=== PATIENT | male | born 1955 | race Caucasian/White ===

== ENCOUNTER 2024-09-03 14:52 | Emergency (ER) | payer MEDICARE, SELFPAY ==
[2024-09-03] VITALS (27 sets, daily range): BP systolic 119–179; BP diastolic 60–129; PULSE 68–103; RESP 13–34; TEMP 36.3; O2SAT 87–99
--- NOTE | 2024-09-03 14:45 | DI.RAD_ITS ---
Exam(s) XR HUMERUS RT EXAM: XR HUMERUS RT CLINICAL HISTORY: Trauma. TECHNIQUE: 2D digital imaging was performed of the right humerus. Four images were obtained. AP an d lateral views were obtained. COMPARISON: No exams were available for comparison FINDINGS: BONES: No acute fracture is present. No bony destructive lesion is seen. An anterior dislocation of t he right glenohumeral joint. SOFT TISSUE: Normal. IMPRESSION: Right anterior shoulder dislocation. DATA REPOSITORY: RADIATION DOSE DELIVERED:
--- NOTE | 2024-09-03 14:45 | DI.RAD_ITS ---
Exam(s) XR SHOULDER RT COMPLETE 2+V EXAM: XR SHOULDER RT COMPLETE 2+V CLINICAL HISTORY: fall, pain. TECHNIQUE: 2D digital imaging was performed of the right shoulder. Three images were obtained. Gra lashanda, AP and Y views were obtained. COMPARISON: No exams were available for comparison FINDINGS: BONES: No acute fracture is present. No bony destructive lesion is seen. JOINTS: There is an anterior dislocation of the right glenohumeral joint. Degenerative changes are s een at the acromioclavicular joint. SOFT TISSUE: Normal. IMPRESSION: Right anterior shoulder dislocation. DATA REPOSITORY: RADIATION DOSE DELIVERED:
--- NOTE | 2024-09-03 14:45 | DI.CT_ITS ---
Exam(s) CT HEAD CERVICAL SPINE WO EXAM: CT HEAD CERVICAL SPINE WO CLINICAL HISTORY: Fall on anticoagulation. TECHNIQUE: Imaging Protocol: Axial computed tomography images with coronal and sagittal reformatted images were created and reviewed COMPARISON: No exams were available for comparison FINDINGS: The examination is limited due to patient motion artifact. CT Head: Ventricles and Extra axial spaces: Normal in size and morphology for the patient's age. Hemorrhage: None. Cerebral parenchyma: No acute territorial infarct. No mass effect. Midline shift: None. Brainstem/Cerebellum: Normal. Calvarium: Normal. Visualized Paranasal sinuses/Mastoids: Clear. Soft Tissues: Unremarkable. CT Cervical Spine: Bones: No acute fracture or subluxation. Mild degenerative changes are seen in the spine. Soft Tissues: Unremarkable. Lung Apices: No evidence of an apical pneumothorax. IMPRESSION: 1. No acute intracranial process. 2. No acute fracture or subluxation in the cervical spine. RADIATION DOSE DELIVERED: 1,579.54mGy.cm Total DLP DATA REPOSITORY: All CT scans at this facility are submitted to the National Radiology Data Registry (NRDR) Dose Index Registry (DIR) with the [employer] ([employer]). RADIATION OPTIMIZATION: All CT scans at this facility use at least one of these dose optimization te chniques: automated exposure control; mA and/or kV adjustment per patient size (includes targeted exa ms where dose is matched to clinical indication); or iterative reconstruction.
--- NOTE | 2024-09-03 14:45 | RT.EKG_ITS ---
APPROVED REPORT Exam: Resting ECG Reason for Exam: A-fib, fall Patient Location: E HR:84 bpm ECG Measurements Heart Rate 84 AXIS HI 160 P 0 QRSd 158 QRS 9 QT 404 T 186 QTc 477 Conclusion A-fib, LBBB No STEMI
--- NOTE | 2024-09-03 14:55 | W.ED.GENAD ---
Discharge Plan Discharge Details Chief Complaint: Trauma Primary Care Provider: Mohan Aguilar ED Provider: Caty Lynn HPI General Mode of arrival: EMS. Date/Time Provider Initiated Documentation: 09/03/24 14:53. Limitations to Documentation: no limitations. Information obtained by: patient and old records reviewed. HPI Narrative: HPI: This is a 69-year-old male patient, with a past medical history significant for atrial fibrillation on anticoagulation, who is presenting for evaluation after a fall. The patient reports that he tripped over a lip on the floor, falling and landing on his right shoulder. He is not sure if he hit his head, states that he did not lose consciousness. He is complaining primarily of right shoulder and upper extremity pain. He was not able to get up after the event and summoned EMS. He states that prior to this event he was in his normal state of health, did not have any preceding dizziness, loss of consciousness/syncope, or chest pain. He has otherwise been in his normal state of health. Prior to arrival he received Tylenol intravenously for pain management. Exam: Gen: Awake and alert, in no apparent distress HEENT: Non-icteric sclera, PERRL, scalp with abrasions overlying the right forehead, right cheek. Scalp and face otherwise atraumatic Neck: Supple, no midline cervical spine tenderness, decreased range of motion or step-offs Lungs: No apparent respiratory distress, normal respiratory effort. Lung sounds clear and equal CV: Appears well perfused, strong distal pulses Abdomen: Non-distended, soft, nontender MSK: Moves 4 extremities without apparent limitation in ROM, with the exception of the right shoulder, which is tender to palpation over the area of the proximal humerus without significant deformity. There are no overlying skin changes, and distal to this injury to the elbow, forearm, and hand are without signs of significant trauma. She had L-spine without tenderness or step-offs, pelvis stable to AP compression, bilateral lower extremities without significant injuries. Skin: Visualized skin without rashes, cyanosis. The patient has an abrasion over his right elbow, right knee, hemostatic Neuro: No obvious focal deficits or facial asymmetry. Speaks in full, clear sentences. CSM's distal to the right upper extremity injury are intact and symmetrical bilaterally Psych: Appropriate for situation. MDM: This is a 69-year-old male patient presenting for evaluation after a fall. My differential includes but is not limited to intracranial hemorrhage, skull fracture, cervical spine fracture. Considered humerus fracture, shoulder fracture, dislocation, clavicle injury, AC separation. Considered contusion, ligamentous injury/sprain. I am reassured against neurovascular abnormalities given my reassuring and intact examination. The patient has no medical complaints prior to his fall to increase my concern for syncope, ACS, arrhythmia, severe metabolic or electrolyte derangements, or severe anemia. We will obtain basic laboratory studies to include CBC, CMP, PT/INR. I will obtain a CT of the patient's brain and C-spine, and x-ray imaging of the affected right shoulder and right humerus. ED Course: I independently interpreted the laboratory studies, which show no significant leukocytosis, a mild anemia, no thrombocytopenia. The chemistry panel is without evidence of electrolyte abnormality, kidney dysfunction, or liver injury. I provided the patient with a sling for comfort as well as Dilaudid for pain management. I signed out care of this patient to the oncoming provider prior to completion of imaging studies. All further care per the oncoming team. Caty Lynn MD Medical Decision Making Quality:[facility] Health Related Social Needs: No Data to Display [facility] Social History Smoking/Tobacco Use Status: Never Smoking risk assessment performed?: Yes Alcohol Intake: never Substance use type: does not use Sign Out Sign Out Data: Sign Out Comment: 69-year-old male patient, anticoagulated for atrial fibrillation, sustained a mechanical fall. Head strike, awaiting CT head and C-spine. Right shoulder and proximal humerus pain, pending x-rays. Hemodynamically appropriate, neuroexam otherwise intact, in a sling. Awaiting imaging. Last updated by Caty Lynn MD at 09/03/24 16:36
[2024-09-03 15:33] LABS: Abs Immature Grans 0.04 10^3/uL (0.0-0.06); Absolute Basophil Count 0.03 10^3/uL (0.0-0.2); Absolute Eosinophil Count 0.06 10^3/uL (0.0-0.7); Absolute Lymphocyte Count 0.87 10^3/uL (1.2-3.4); Absolute Neutrophil Count 7.97 10^3/uL (1.2-6.7); Basophils % 0.3 %; Eosinophils % 0.6 %; HCT 38.2 % (40.0-50.0); HGB 12.6 g/dL (13.5-17.5); Immature Grans % 0.4 %; MCH 34.4 pg (27.0-33.0); MCV 104 fL (80-95); MPV 9.6 fL (8.0-11.0); Monocytes % 7.2 %; Neutrophils % 82.5 %; Platelet Count 190 10^3/uL (130-400); RBC 3.66 10^6/uL (4.36-5.78); RDW 13.2 % (11.8-14.1); RDW-SD 51.3 fL; WBC 9.67 10^3/uL (4.4-10.8)
[2024-09-03 15:45] LABS: INR 1.2 (0.9-1.1)
[2024-09-03 16:10] LABS: ALT 37 U/L (16-63); AST 24 U/L (15-37); Albumin 3.5 g/dL (3.4-5.0); Alkaline Phosphatase 99 U/L (46-116); Anion Gap 7.4 mmol/L (3-11); BUN 21 mg/dL (7-18); Bilirubin, Total 0.67 mg/dL (0.2-1.0); CO2 26.6 mmol/L (21.0-32.0); Calcium 10.1 mg/dL (8.5-10.1); Chloride 107 mmol/L (98-107); Estimated GFR 82.49 (mL/min/1.73m2); Glucose 130 mg/dL (74-106); Potassium 4.8 mmol/L (3.5-5.1); Sodium 141 mmol/L (136-145)
--- OUTSIDE RECORDS SUMMARY | 2024-09-03 16:31 | XMS_ITS | Continuity of Care Document ---
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 - Active 90 day supply please LATANOPROST 0.005% EYE DROPS INSTILL 1 DROP INTO THE AFFECTED EYES IN THE EVENING - Active brinzolamide 1 % eye drops,suspension instill 1 drop by Ophthalmic route 2 times every day into both eyes 1 drop - Active 90 day supply please ROSUVASTATIN CALCIUM (unknown strength) Not Available - Active Aspirin Low Dose 81 mg tablet,delayed release - Active LISINOPRIL (unknown strength) Not Available - Active AMLODIPINE BESYLATE (unknown strength) Not Available - Active COREG (unknown strength) Not Available - Active timolol maleate 0.5 % eye drops INSTILL 1 DROP INTO BOTH EYES TWICE DAILY. - No Longer Active 90 day supply please Procedures Procedure Date COMPREHENSIVE EYE EXAM, EST. PATIENT March REFRACTION VISUAL FIELD EXAMINATION(S) Scanning Imaging, Posterior Segment, Opt ic Nerve VISUAL FIELD EXAMINATION(S) OFFICE/OUTPATIENT VISIT, EST VISUAL FIELD EXAMINATION(S) COMPREHENSIVE EYE EXAM, EST. PATIENT Sep VISUAL FIELD EXAMINATION(S) Scanning Imaging, Posterior Segment, Opt ic Nerve OFFICE/OUTPATIENT VISIT, EST VISUAL FIELD EXAMINATION(S) COMPREHENSIVE EYE EXAM, EST. PATIENT May VISUAL FIELD EXAMINATION(S) INTERMEDIATE EYE EXAM, ESTABLISHED PAT J an- VISUAL FIELD EXAMINATION(S) INTERMEDIATE EYE EXAM, ESTABLISHED PAT S POSTOP FOLLOW-UP VISIT LASER SURGERY OF EYE COMPREHENSIVE EYE EXAM, EST. PATIENT May VISUAL FIELD EXAMINATION(S) Scanning Imaging, Posterior Segment, Opt ic Nerve INTERMEDIATE EYE EXAM, ESTABLISHED PAT J an INTERMEDIATE EYE EXAM, ESTABLISHED PAT D ec- VISUAL FIELD EXAMINATION(S) INTERMEDIATE EYE EXAM, ESTABLISHED PAT O ct- INTERMEDIATE EYE EXAM, ESTABLISHED PAT O ct- POSTOP FOLLOW-UP VISIT LASER SURGERY OF EYE INTERMEDIATE EYE EXAM, ESTABLISHED PAT S ep- VISUAL FIELD EXAMINATION(S) SPECIAL EYE EVALUATION VISUAL FIELD EXAMINATION(S) COMPREHENSIVE EYE EXAM, EST. PATIENT May Scanning Imaging, Posterior Segment, Opt ic Nerve INTERMEDIATE EYE EXAM, ESTABLISHED PAT J INTERMEDIATE EYE EXAM, ESTABLISHED PAT J an-2017 VISUAL FIELD EXAMINATION(S) INTERMEDIATE EYE EXAM, ESTABLISHED PAT J an--2017 VISUAL FIELD EXAMINATION(S) INTERMEDIATE EYE EXAM, ESTABLISHED PAT J VISUAL FIELD EXAMINATION(S) COMPREHENSIVE EYE EXAM, EST. PATIENT Apr Scanning Imaging, Posterior Segment, Opt ic Nerve INTERMEDIATE EYE EXAM, ESTABLISHED AMI Au VISUAL FIELD EXAMINATION(S) INTERMEDIATE EYE EXAM, ESTABLISHED PAT S VISUAL FIELD EXAMINATION(S) EYE EXAM ESTABLISHED PAT VISUAL FIELD EXAMINATION(S) EYE EXAM ESTABLISHED PAT EYE EXAM & TREATMENT Scanning Imaging, Posterior Segment, Opt ic Nerve EYE EXAM ESTABLISHED PAT EYE EXAM ESTABLISHED PAT EYE EXAM ESTABLISHED [facility] EYE EXAM & TREATMENT REFRACTION N/C Scanning Imaging, Posterior Segment, Opt ic Nerve EYE EXAM ESTABLISHED PAT VISUAL FIELD EXAMINATION(S) EYE EXAM ESTABLISHED PAT EYE EXAM ESTABLISHED PAT Scanning Imaging, Posterior Segment, Opt ic Nerve OFFICE/OUTPATIENT VISIT, EST REFRACTION WITH EXAM EYE EXAM ESTABLISHED PAT OFFICE/OUTPATIENT VISIT, EST OFFICE/OUTPATIENT VISIT, EST VISUAL FIELD EXAMINATION(S) OFFICE/OUTPATIENT VISIT, EST Scanning Imaging, Posterior Segment, Opt ic Nerve EYE EXAM ESTABLISHED [facility] VISUAL FIELD EXAMINATION(S) EYE EXAM & TREATMENT REFRACTION WITH EXAM EYE EXAM & TREATMENT REFRACTION N/C EYE EXAM WITH PHOTOS Advance Directives Directive Yes / No Effective Date File Name No Information Encounters Encounter Description Practice Location Reason(s) For Visit Diagnoses Date Provider Providers Copied on Encounter [facility] , [address] [place] [address], [facility], tel:[phone] [place] No Information 4 Wilman Al [address] [place] [address], [address], [place]. tel:[phone] [facility] , [facility], [address], tel:[phone] [place] No Information 4 Wilman Al [address] [place] [address], [address], [facility], . tel:[phone] [facility] , [address] [place] [address], [facility], tel:[phone] [place] POAG (chief complaint) Primary open-angle glaucoma of right eye, severe stagePrimary open-angle glaucoma, left eye, mild stageAge-rela steffi nuclear cataract, bilateral May-0 4 Wilman Leong. [address] [place] [address], [facility], [place]. tel:[phone] [facility] , [address] [place] [address], [facility], tel:[phone] [place] No Information Apr-0 4 Wilman Leong. [address] [place] [address], [facility], . tel:[phone] [facility] , [address] [place] [address], [facility], tel:[phone] [facility] No Information Faizan-0 4 Wilman Leong. [address] [place] [address], [facility], [place]. tel:[phone] [facility] , [address] [place] [address], [facility], tel:[phone] [place] POAG (chief complaint) Primary open-angle glaucoma, left eye, mild stagePrimary open-angle glaucoma, right eye, moderate stage Dec-0 3 Wilman Al [address] [place] [address], [facility], [place]. tel:[phone] OFFICE/OUTPA TIENT VISIT, [facility] , [address] [place] [address], [facility], tel:[phone] [place] glaucoma (chief complaint) Primary open-angle glaucoma of right eye, severe stage Sep-0 6 3 Wilman Al [address] [place] [address], [facility], [place]. tel:[phone] [facility] , [address] [place] [address], [facility], tel:[phone] [place] POAG (chief complaint) Primary open-angle glaucoma of right eye, severe stage March- 3 Wilman [address] [facility], [address], [facility], . tel:[phone] [facility] , [address] [place] [address], [facility], tel:[phone] [place] glaucoma (chief complaint) Primary open-angle glaucoma, right eye, moderate stage Sep- 2 Wilman Al [address] [place] [address], [address], [facility], [place]. tel:[phone] OFFICE/OUTPA TIENT VISIT, [facility] , [address] [place] [address], [facility], tel:[phone] [place] POAG (chief complaint) Primary open-angle glaucoma of right eye, severe stage 2 Wilman Al [address] [place] [address], [address], [facility], [place]. tel:[phone] [facility] , [address] [place] [address], [facility], tel:[phone] [place] POAG (chief complaint) Primary open-angle glaucoma of right eye, severe stage 1 Wilman Al [address] [place] [address], [address], [facility], [place]. tel:[phone] [facility] , [address] [place] [address], [facility], [place] tel:[phone] [place] POAG (chief complaint) Primary open-angle glaucoma of right eye, severe stage 1 Wilman Al [address] [place] [address], [address], [facility], [place]. tel:[phone] [facility] , [address] [place] [address], [facility], [place] tel:[phone] [place] 1 mo IOP check (chief complaint) Primary open-angle glaucoma, left eye, mild stagePrimary open-angle glaucoma of right eye, severe stage Sep-0 3- 0 Wilman Al [address] [facility], [address], [facility], . tel:[phone] [facility] , [address], [facility], tel:[phone] [place] mild soreness (chief complaint) Primary open-angle glaucoma, left eye, mild stage May-3 - 0 Wilmanclaire Al [address] [facility], [address] [place] [address], [facility], [place]. tel:[phone] [facility] , [address] [place] [address], [facility], tel:[phone] [place] Glaucoma (chief complaint) Primary open-angle glaucoma, left eye, mild stage May- 0 Wilman Al [address] [facility], [address], [facility], [place]. tel:[phone] [facility] , [address] [place] [address], [facility], tel:[phone] [place] POAG (chief complaint) Primary open-angle glaucoma, right eye, moderate stagePrimary open-angle glaucoma, left eye, mild stage May- 0 Wilman Al [address] [facility], [address], [facility], [place]. tel:[phone] [facility] , [address] [place] [address], [facility], [place] tel:[phone] [place] glaucoma (chief complaint)g laucoma (chief complaint) Primary open-angle glaucoma of right eye, severe stagePrimary open-angle glaucoma, left eye, mild stage Nov- 0-202 0 Wilman Al [address] [facility], [address], [facility], [place]. tel:[phone] [facility] , [facility] [address], [facility], [place] tel:[phone] [place] glaucoma (chief complaint)g laucoma (chief complaint) Primary open-angle glaucoma of right eye, severe stage Dec-0 6-201 9 Wilman Leong. [address] [facility], [address], [facility], . tel:[phone] [facility] , [address], [facility], tel:[phone] [place] open angle glaucoma (chief complaint)o pen angle glaucoma (chief complaint) Primary open-angle glaucoma of right eye, severe stage Oct-3 1-201 9 Wilman Leong. [address] [facility], [address], [facility], . tel:[phone] [facility] , [address] [place] [address], [facility], tel:[phone] [place] glaucoma (chief complaint)g laucoma (chief complaint) Primary open-angle glaucoma of right eye, severe stage Oct-0 8-201 9 Wilman Leong. [address] [facility], [address], [facility], [place]. tel:[phone] [facility] , [address] [place] [address], [facility], tel:[phone] [place] POAG (chief complaint)P OAG (chief complaint) Primary open-angle glaucoma of right eye, severe stage Oct-0 1-201 9 Wilman Leong. [address] [facility], [address], [facility], [place]. tel:[phone] [facility] , [address] [place] [address], [facility], tel:[phone] [place] open angle glaucoma (chief complaint)o pen angle glaucoma (chief complaint) Primary open-angle glaucoma of right eye, severe stage Sep-2 3-201 9 Wilman Leong. [address] [facility], [address], [facility], . tel:[phone] [facility] , [address] [place] [address], [facility], tel:[phone] [place] glaucoma (chief complaint)g laucoma (chief complaint) Primary open-angle glaucoma of right eye, severe stage Jul-0 9 Wilman Al [address] [facility], [address], [facility], . tel:[phone] [facility] , [facility] [address], [facility], tel:[phone] [place] open angle glaucoma (chief complaint)o pen angle glaucoma (chief complaint) Primary open-angle glaucoma of right eye, severe stage 9 Wilmanclaire Al [address] [facility], [address], [facility], . tel:[phone] [facility] , [address] [place] [address], [facility], tel:[phone] [place] POAG (chief complaint)d ecreased vision (chief complaint)P OAG (chief complaint)d ecreased vision (chief complaint) Primary open-angle glaucoma of right eye, severe stagePrimary open-angle glaucoma, right eye, moderate stage 9 Wilmanclaire Al [address] [facility], [address], [facility], . tel:[phone] [facility] , [address] [place] [address], [facility], tel:[phone] [place] IOP check, per patient (chief complaint)I OP check, per patient (chief complaint) Primary open-angle glaucoma of right eye, severe stage 8 Wilmanclaire Al [address] [facility], [address], [facility], [place]. tel:[phone] [facility] , [address] [place] [address], [facility], tel:[phone] [place] glaucoma (chief complaint)g laucoma (chief complaint) Primary open-angle glaucoma, left eye, mild stagePrimary open-angle glaucoma, right eye, moderate stage 8 Wilman Al [address] [facility], [address], [facility], . tel:[phone] [facility] , [address], [facility], tel:[phone] [place] VF & IOP check (chief complaint)V F & IOP check (chief complaint) Primary open-angle glaucoma, right eye, moderate stage 8 Wilman Al [address] [facility], [address] [place] [address], [facility], . tel:[phone] [facility] , [address] [facility] [address] [place] [address], [facility], tel:[phone] [place] glaucoma (chief complaint)g laucoma (chief complaint) Primary open-angle glaucoma, right eye, moderate stage 7 Wilman Leong. [address] [facility], [address] [place] [address], [facility], . tel:[phone] [facility] , [address] [place] [address], [facility], tel:[phone] [place] decreased vision (chief complaint)d ecreased vision (chief complaint) Primary open-angle glaucoma, right eye, moderate stage 7 Wilman Al [address] [facility], [address], [facility], . tel:[phone] [facility] , [address] [place] [address], [facility], tel:[phone] [place] pressure check (chief complaint)p ressure check (chief complaint) Primary open-angle glaucoma, right eye, moderate stage 7 Wilman Al [address] [facility], [address] [place] [address], [facility], [place]. tel:[phone] [facility] , [address] [place] [address], [facility], tel:[phone] [place] POAG, here for VF & IOP check (chief complaint)P OAG, here for VF & IOP check (chief complaint) Primary open-angle glaucoma, left eye, mild stagePrimary open-angle glaucoma, right eye, moderate stage Mar-2 0-201 7 Wilman LeongAshley [address] [facility], [address], [facility], . tel:[phone] [facility] , [address] [place] [address], [facility], tel:[phone] [place] VF & IOP check (chief complaint)V F & IOP check (chief complaint) Primary open angle glaucoma Sep-1 6-201 6 Wilman LeongAshley [address] [place] [address], [address], [facility], [place]. tel:[phone] [facility] , [address] [place] [address], [facility], tel:[phone] [place] 2 week VF & IOP check (chief complaint)2 week VF & IOP check (chief complaint) Primary open angle glaucoma March- 7-201 6 Wilman LeongAshley [address] [place] [address], [address], [facility], [place]. tel:[phone] [facility] , [address] [place] [address], [facility], tel:[phone] [place] pressure check (chief complaint)p ressure check (chief complaint) Primary open angle glaucoma May-0 3-201 6 Wilman LeongAshley [address] [place] [address], [address], [facility], [place]. tel:[phone] [facility] , [address] [place] [address], [facility], [place] tel:[phone] [place] glaucoma (chief complaint)g laucoma (chief complaint) Primary open angle glaucoma Apr-0 8-201 6 Wilman LeongAshley [address] [place] [address], [address], [facility], [place]. tel:[phone] [facility] , [address] [place] [address], [facility], tel:[phone] [place] pressure check (chief complaint)p ressure check (chief complaint) Conjunctiviti s, unspecified Mar-2 4-201 6 Wilmanclaire Al [address] [facility], [address], [facility], . tel:[phone] [facility] , [address] [place] [address], [facility], tel:[phone] [place] glaucoma (chief complaint)g laucoma (chief complaint) Primary open angle glaucoma Jan- 6 Wilman Leong. [address] [place] [address], [address], [facility], . tel:[phone] [facility] , [address] [facility] [address] [place] [address], [facility], tel:[phone] [place] glaucoma (chief complaint)g laucoma (chief complaint) Primary open angle glaucoma Feb- 5 Alen Greer. [facility] [place] [address], [facility], . tel:[phone] [facility] , [facility] [address], [facility], tel:[phone] [place] decreased vision (chief complaint)d ecreased vision (chief complaint) Primary open angle glaucoma Feb- 3 5 Alen Greer. [address] [place] [address] St[address], [facility], . tel:[phone] [facility] , [address] [facility] [address] [place] [address], [facility], tel:[phone] [place] HVF / IOP (chief complaint) Primary open angle glaucoma Dec- 4 Alen Greer. [address] [place] [address] [address] [place] [address], [facility], [place]. tel:[phone] [facility] , [address] [place] [address], [facility], tel:[phone] [place] Primary open angle glaucoma Oct-1 4 Alen Greer. [address] [place] [address], [facility], . tel:[phone] [facility] , [address], [facility], tel:[phone] [place] Primary open angle glaucoma Sep- 4 Alen Greer. [address], [place], [address], [place]. tel:[phone] OFFICE/OUTPA TIENT VISIT, EST [facility], [address], [place], [address], [place] tel:[phone] [place] IOP and Refraction (chief complaint) Primary open angle glaucoma March-0 4 No Information [facility], [address], [place], [address], [place] tel:[phone] [place] Other vitreous opacitiesPrim ruchi open angle glaucomaPresb yopia Feb- 4 No Information OFFICE/OUTPA TIENT VISIT, EST [facility], [address] [facility], [place], [address], [place] tel:[phone] [place] Primary open angle glaucomaOther vitreous opacities 4 No Information OFFICE/OUTPA TIENT VISIT, EST [facility], [address] [place] [address], [address], [place] tel:[phone] [place] 3-4 week IOP (chief complaint) Primary open angle glaucoma Jan- 4 No Information [facility], [address], [place], [address], [place] tel:[phone] [place] No Information Jan- 4 No Information OFFICE/OUTPA TIENT VISIT, EST [facility], [address] [facility], [place], [address], [place] tel:[phone] [place] Primary open angle glaucoma Feb-2 4 No Information [facility], [address] [facility], [place], [address], [place] tel:[phone] [place] Primary open angle glaucoma Dec-2 0- 3 No Information [facility], [address], [place], [address], [place] tel:[phone] [place] Primary open angle glaucoma May- 3 No Information [facility] , [address], [address], tel:[phone] [place] No Information 3 No Information [facility] , [address], [address], tel:[phone] [place] decreased vision (chief complaint) Primary open angle glaucomaPrima ry open angle glaucoma 3 No Information [facility] , [address], [address], tel:[phone] [place] No Information No Information Family History Family Member Type Diagnosis Age At Onset Father Problem (finding) glaucoma Payers Payer name Insurance type Covered constitution party ID Giovany alejandro(s) P Medicare Complete CI [id number] Social History Type Description Quantity Date Captured Comments Sex Male Smoking Status No Information Chief Complaint And Reason For Visit No Information Reason For Referral Reason For Referral No Information Plan Of Treatment Date Type Action Status Appointment [facility] BOOKED Appointment [place] [facility] BOOKED Appointment [place] [facility] BOOKED History Of Present Illness Encounter Date Complaint History Of Prese nt Illness POAG The patient is u sing timolol BID OU, brinzolamide BID OU and latanoprost QHS OU. He denies pain, flashes and new floaters. He c/o blurry vision as well. POAG Patient in offic e for VF and IOP. Restarted testing OD due to movement by patient. The movement was causing blind spot errors. This continued with the next attempt. Patient is using timolol BID OU, brinzolamide BID OU and latanoprost qhs OU. glaucoma The 67 year old patient presents for evaluation of glaucoma in the right eye and left eye. Timolol & Brinzolamide BID OU ~ 7:45 am today. Latanoprost Qhs OU. POAG Patient in offic e for VF and IOP. Restarted OD due to blind spot errors and false negatives but they continued into second test OD. Patient is using latanoprost qhs OU, timolol BID OU and Brinzolamide BID OU, last used around 7:20. glaucoma The 67 year old male presents for evaluation of glaucoma in the right eye and left eye. Brinzolamide & Timolol BID OU ~ 9:30am today. Latanoprost Qhs OU. Pt says vision has been stable, no new floaters or pain. POAG Patient in offic e for VF and IOP. Patient is using brinzolamide BID OU, timolol BID OU and latanoprost qhs OU. POAG Patient in offic e for complete exam, visual field and NFLA. Patient denies any changes in vision, eye pain, flashes, floaters or discharge. Patient c/o tearing, more so outside than inside. Patient notes this happens most days. Patient states that his has not worsened since last visit but is still happening. Patient is using TImolol BID last at 7:30am, latanoprost qhs last at 8pm, brinzolamide BID last dose at 7:40 (first day on generic today) Patient was using Azopt prior to getting new generic and decreased Azopt to once daily OU as he did not have enough to take BID. POAG The 65 year old male presents for evaluation of POAG in the right eye and left eye. Pt has no VA complaints. Timolol BID OU, last gtt 740am. Azopt BID OU, last gtt 749am. Latanoprost qpm OU, last gtt 8pm. 1 mo IOP check The 64 year old male presents for evaluation of 1 mo IOP check in the right eye and left eye. Pt states no VA complaints today. Using Azopt BID OU, last gtt 7:45am. Timolol BID OU, last gtt 7:50am and latanoprost qpm OU, last gtt 8pm. mild soreness The 64 year old male presents for mild soreness in the left eye since s/p ALT 06/11. Does deny pain OS. Woke up with red OS this morning, but has not been red since laser. Pt using pred OS QID, last gtt 8am. Timolol BID OU, last gtt 8:15am. Lataoprost qpm OU, last gtt 8pm. Azopt BID OU last gtt 8:30am Glaucoma The 64 year old male presents for evaluation of Glaucoma in the right eye and left eye. pt here for ALT laser OS today. using Timolol BID O U, latanoprost QHS OU & Azopt BID OU. POAG The 64 year old male presents for evaluation of POAG in the right > left. Pt is unaware of any Va changes, hard to read road signs and some blurred blurred Va. denies flashes and floaters, no blurred Va. Pt is using Azopt BID OU, last gtt 8:30am. Timolol BID OU, last gtt 8:35am and Lataoprost qhs OU, last gtt 8pm glaucoma The 64 Year old male presents for evaluation of glaucoma in the right eye and left eye. The patient denies floaters, flashes, eye pain and change in vision. Azopt and Timolol BID OU, Latanoprost QHS OU ~ 7:30 am and 7:30 pm last night. Pt is here for a pressure check today. glaucoma The 64 Year old male presents for evaluation of glaucoma in the right eye and left eye. Azopt and Timolol BID OU~, Latanoprost QHS OU~ Pt here for a VF today. open angle glaucoma The 64 Year old male presents for evaluation of open angle glaucoma azopt and timolol BID OU-missed 3 doses azopt Sat-Sunlatanoprost OU qhs-missed one dose on Thursday Patient here for 3-4 week IOP. . glaucoma The 64 Year old male presents for evaluation of glaucoma in the right eye. The patient denies floaters, flashes, eye pain and change in vision. Azopt and Timolol BID OU ~ 8 am, Latanoprost QHS OU ~ 8 pm last night. Pt here for a pressure check. POAG The 64 Year old male presents for evaluation of POAG in the right eye and left eye. The patient denies new floaters, flashes and eye pain. Azopt & Timolol BID OU ~ 8am today.Latanoprost Qhs OU ~ 8pm last night.Durezol Qday OD ~ 2pm. open angle glaucoma The 63 Year old male presents for evaluation of open angle glaucoma Patient continues with Azopt BID OU, Timolol BID OU and latanoprost qhs OU,. Patient in office today for ALT OD. Patient denies any eye pain, flashes or floaters. . glaucoma The 63 Year old male presents for evaluation of glaucoma pt here for repeat 24-2 VF OD today - pt appeared to fixate well today & fixation losses were 2/13 until the very end of the test when it went to 3/13. Pt using Azopt BID OU, Timolol BID OU & is on trial of latanoprost QHS OU.. open angle glaucoma The 63 Year old male presents for evaluation of open angle glaucoma in the right eye and left eye. patient here for VF and IOP today. Patient has been taking timolol BID OU, Latanoprost qhs OU, azopt BID OU. Patient changed his reading glasses to a +2.50 and feels that distance vision has decreased. Patient does not notice any peripheral field loss of vision. . POAG The 63 Year old male presents for evaluation of POAG in the right eye and left eye. The condition is severe. Travatan Z Qhs OU ~ 8pm last night.Timolol & Azopt BID OU ~ 8:30am today. Pt suspects he does not have a JACKY allergy as suspected by previous Ophth Surgeon, as he has been using Azopt without issue. decreased vision The patient [place] of decreased vision in the right eye and left eye. It affects NV>DV. The symptom is constant. The condition is mild. The condition is described as blurring. The patient denies new floaters, flashes, eye pain. IOP check, per patient The 62 Ye ar old male presents for evaluation of IOP check, per patient in the right eye and left eye. Patient was started on Azopt about [address] Fung was trying this to see if it helps manage IOP better. He says he's tolerating this new IOP med well.Azopt: BID, OU (~8:15 am)Timolol: BID, OU (~8 am)Travatan Z: Qhs, OU (~8 pm) glaucoma The 62 Year old male presents for evaluation of glaucoma Timolol BID OU last used ~ 0730Travatan Z last used ~ 2030 Repeat HVF OD today. VF & IOP check The 62 Year old male presents for evaluation of VF & IOP check in the right eye and left eye. No significant changes with vision/eyes reported over the past ~7 months. Though he notes his distance vision may be a little worse. He notes eyes are generally comfortable. Tolerating IOP meds well, still. No recent floaters or flashes.Timolol: BID, OU (7:30 am)Travatan: Qhs, OU (8:30 pm) glaucoma The 61 Year old male presents for evaluation of glaucoma in the right eye and left eye. Pt here for 24-2 VF & IOP today, using Travaprost (generic) from [facility] QHS OU, Timolol BID OU - spaces the drops minimum of 20 mins but usually 30mins. Takes timolol around 8pm & 7:30am and Travaprost 8:30 - vision stable, sometimes better than other times. OS trouble focusing. decreased vision The 61 Year old male presents for evaluation of decreased vision in the right eye and left eye. It affects near vision. The symptom is constant. The condition is mild. The condition is described as blurring. The patient denies floaters, flashes and eye pain. pressure check The 61 Year old male presents for evaluation of pressure check in the right eye and left eye. pt here for IOP check after switching to generic Travatan from [facility] - Using Travaprost QHS OU (usually around 8-8:30PM) and uses Timolol BID OU (usually 7:30-8am & @ 8-8:30pm but spaces drops by 15-30 mins/max. Pt denies any adverse effects from new Travaprost - he read material & it has same preservative in it as name Travatan. pT has been using generic Travaprost/[facility] since 03/08/17 POAG, here for VF & IOP check Th e 61 Year old male presents for evaluation of POAG, here for VF & IOP check in the right eye and left eye. Not aware of vision changes. No trouble with IOP meds. Patient notes he discussed getting (generic?) Travatan from a [facility] mail order pharmacy. Will need refills in mid-February. Brought paperwork on pharmacy to make sure Dr. Stovall is okay with this still.Timolol: BID, OU (7:30 am)Travatan Z: Qhs, OU (~8:15 pm) VF & IOP check The 60 Year old male presents for evaluation of VF & IOP check in the right eye and left eye. No major vision changes noted. Denies eye pain, floaters, and flashes.Timolol: BID, OU (7:15 am)Travatan: Qhs, OU (8:40 pm) 2 week VF & IOP check The 60 Yea r old male presents for evaluation of 2 week VF & IOP check in the right eye and left eye. pressure check The 60 Year old male presents for evaluation of pressure check Timolol BID OU - last used ~ 8:45 amTravatan Z QHS OU - last used ~ 9:30 pm Pt notes 1st week he would get occasional reddness in OD lid which would clear up; migrated to OS and would also clear up. Pt denies itching, but notes some discharge. Pt notes that symptoms are intermittant. . glaucoma The 60 Year old male presents for evaluation of glaucoma in the right eye and left eye. Pt notes ~ 10 days ago OD lid started swelling. Pt D/C Cosopt PF gave 24 hour wash out period and 1 gtt of Durezol. Pt has been using Travatan Z QHS OU. Pt states no issues using Travatan Z.Pt notes he has also switched from Head and Shoulders to baby shampoo. Pt notes some minor improvement in redness.. pressure check The 60 Year old male presents for evaluation of pressure check in the right eye and left eye. using durezol qday. redness has cleared up. eyes feeling fine glaucoma The 60 Year old male presents for evaluation of glaucoma. red/itchy eyes and eyelids for past two weeks-worse OS. Using Zioptic OU QHS and Alphagan P OU BID. Has stopped using alphagan OS only for past two days thinking it may be allergic reaction. no change in symptoms thus far. glaucoma The 59 Year old male presents for evaluation of glaucoma in the right eye and left eye. The patient denies flashes, floaters and and discomfort OU. Pt notes gtt sometimes have a little bit of a sting but states he is tolerating them well. Cosopt - BID OU - last taken ~ 7:15 am todayLatanoprost - QHS OU - last taken ~ 9 pm last night decreased vision The 59 Year old male presents for evaluation of decreased vision in the right eye and left eye. It started about 4 month(s) ago. The onset was gradual. It affects both near and far vision. The symptom is frequent. The condition is mild. The patient denies eye pain and flashes. Occl floater OD not new. 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 Stovall for IOP check with VF , Complete Exam and NFA. 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 Stovall for IOP check with VF. 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 Stovall for IOP check with VF , Complete Exam and NFA. 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 Stovall for IOP check. Related to Primary open-angle glaucoma, left eye, mild stage Impression/Plan Related to Prima ry open-angle glaucoma, left eye, mild stage Impression/Plan Related to Prima ry open-angle glaucoma, left eye, mild stage Return in 2-3 weeks. ALT OS Rela steffi to Primary open-angle glaucoma, left eye, mild stage Impression/Plan Related to Prima ry open-angle glaucoma, right eye, moderate stage Impression/Plan Related to Prima ry open-angle glaucoma, left eye, mild stage Return in [address] Stovall for IOP check with VF , Complete Exam and NFA. 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 Stovall for IOP check. 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 Stovall for IOP check. 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 Patient did not feel last testing was reliable and lens centration may have been off. Today's test is better OD with no involvement of fixation as noted previously. I would still recommend a consulation with Dr Fung for his opinion RE observation/continuing present treatment v. surgery. Related to Primary open-angle glaucoma, right eye, moderate stage Return in 1-[address] Stovall for IOP check. Related to Primary open-angle glaucoma, right eye, moderate stage Impression/Plan - Vi sual Field testing ordered, performed, and reviewed today. Results show inferior arcuate defect OD which may be involving fixation and appears progressed c/w previous testing. OS with minimal/borderline changes. Patient has had SLT with Dr Landaverde and reports not much change in the pressure. He has documented allergy to JACKY, dorzolamide, and intolerance to oral LOUIS. Doubt orville or repeat SLT would be of use in this case. Recommend glaucoma surgery consult-will appoint with Dr Fung for consultation and treatment. Related to Primary open-angle glaucoma, right eye, moderate stage Follow up - Return i n 1-[address] Stovall for IOP check. Related to Primary open-angle glaucoma, right eye, moderate stage Return in [address] Stovall for IOP check with VF. Related to Primary open-angle glaucoma, right eye, moderate stage Impression/Plan - Vi sual Field testing ordered, performed and reviewed today. Results show stable inferior arcuate defect OD. normal testing OS. CSM Related to Primary open-angle glaucoma, right eye, moderate stage Follow up - Return i n [address] Stovall for IOP check with VF. Related to Primary open-angle glaucoma, right eye, moderate stage as planned for Vf and IOP Relate d to Primary open-angle glaucoma, right eye, moderate stage Impression/Plan - NF LA ordered, performed and reviewed today. Results show stable changes OU. disc photos reviewed and c/d exam appears stable as well. WIll CSM for now. awaiting VF in next 1-2 weeks. Related to Primary open-angle glaucoma, right eye, moderate stage Follow up - as planned for Vf an d IOP Related to Primary open-angle glaucoma, right eye, moderate stage Return in next avail able day with Dr. Stovall for Complete Exam , NFLA OU Related to Primary open-angle glaucoma, right eye, moderate stage Follow up - Return i n next available day with Dr. Stovall for Complete Exam , NFLA OU Related to Primary open-angle glaucoma, right eye, moderate stage Impression/Plan - ma rginal IOPs. CSM for now. Has appt for VF 05/01/17 Related to Primary open-angle glaucoma, right eye, moderate stage Impression/Plan Related to Prima ry open-angle glaucoma, left eye, mild stage Impression/Plan - Vi sual Field testing ordered, performed and reviewed today. Results show nonspecific central defect OS> no progressive changes. OS with inferior arcuate defect. ?increase in fixational involvement. patient is s/p SLT OD, could consider repeating this but otherwise, no other medication change options available given allergy history except orville/oral LOUIS.recommend close observation for now with continuation of present medications. repeat VF in 3-4 months. OK to get travatan [facility] but needs to get back in for IOP check 2-3 weeks after starting it to ensure efficacy. Related to Primary open-angle glaucoma, right eye, moderate stage Return in 6 months w michael Stovall for IOP check with VF. Related to Primary open angle glaucoma Follow up - Return i n [address] Stovall for IOP check with VF. Related to Primary open angle glaucoma Impression/Plan - IO ps stable OU. Visual Field testing ordered, performed and reviewed today. Results show inferior arcuate defect OD. appears stable. nonspecific defects OS. stable as well. will CSM for now. Related to Primary open angle glaucoma Return in [address] Stovall for IOP check with VF. Related to Primary open angle glaucoma Follow up - Return i n [address] Stovall for IOP check with VF. Related to Primary open angle glaucoma Impression/Plan - Vi sual Field testing ordered, performed and reviewed today. Results show superior defect and inferior arc, appears stable as c/w prior testing back to 2012 at least. OS wnl. IOPs reasonably controlled OU and no evidence of allergic reaction to timolol and travatan Z thus far. will csm.repeat VF testing 4 months. can still consider referral for surgical options PRN. He would like to conitnue medical managment for now. Related to Primary open angle glaucoma Return in 1-[address] Stovall for IOP check with VF. Related to Primary open angle glaucoma Follow up - Return i n 1-[address] Stovall for IOP check with VF. Related to Primary open angle glaucoma Impression/Plan - IO P slightly better OU and no obvious allergy to non-PF timolol. Will csm with travatan and timolol for now and have pt return soon for VF testing. IOPs still need to be lower OD and he understands that next step is trab or tube given degree of glaucoma and difficulty finding a drop regimen that he can tolerate while adequately controlling IOP. did discuss option of oral LOUIS and/or orville but not sure these would be very well tolerated. May need referral to Dr Fung for tube prn. Related to Primary open angle glaucoma Return in 2-[address] Stovall for IOP check. Related to Primary open angle glaucoma Follow up - Return i n 2-[address] Stovall for IOP check. Related to Primary open angle glaucoma Impression/Plan - se av. NFLA ordered, performed and reviewed today. Results show diffuse thinning with nasal sparing OD. stable v. very slight progression. OS with sup/temp thinning. sparing inf and nasally.IOP better on the TRavatan and no evidence of allergy OU. Definite allergy to PF cosopt based on recent trial. Given that pt has used PF timolol in past, we can assume dorzolamide is the allergen. He would like to try using regular timolol and see if any reaction to that before returning to PF timolol given significant cost difference. if allergic to the regular timolol, will certainly need to go to the PF timolol. Related to Primary open angle glaucoma Return in [address] Stovall for IOP check , Dilated Exam , NFA. Related to Conjunctivitis, unspecified Follow up - Return i n [address] Stovall for IOP check , Dilated Exam , NFA. Related to Conjunctivitis, unspecified Impression/Plan - re solved with d/c of IOP meds. stop durezol OU. trial PF cosopt OD BID (has met yearly deductible) and travatan z OS qhs. discussed possible redness with resuming OS PGA. recheck 2 weeks IOP, CX, and NFLA. pt without diver today and not comfortable driving dilated. Related to Conjunctivitis, unspecified Return in [address] Stovall for CX/NLFA as planned. Related to Primary open angle glaucoma Follow up - Return i n [address] Stovall for CX/NLFA as planned. Related to Primary open angle glaucoma Impression/Plan - al lergic conjunctivitis/medicamentosa OU. recommend d/c of both Zioptan and alphagan p for wash out period. use durezol OU BID for 2-3 days. History of JACKY allergy, used PF timolol in past but stopped to to very high cost- was doing well with this current regimen until about two weeks ago. Would reintroduce monocular/monotherapy trial after wash out period. thinks he tried travatan Z in the past but this was ineffective wrt IOP? doesn't remember a specific allergy to this. Related to Primary open angle glaucoma Impression/Plan - In traocular pressure elevated, recommend consult with assistance specialist. Told continue same meds for now Related to Primary open angle glaucoma 1 -2 weeks for iop and repeat hv f OU Related to Primary open angle glaucoma Impression/Plan - nf la optic nerves today thin OU debra right, concerned iop needs better control Related to Primary open angle glaucoma Follow up - 1 -2 wee ks for iop and repeat hvf OU Related to Primary open angle glaucoma Primary open angle g laucoma OU, vf ordered and reviewed today stable loss OD normal OS - Stable glaucoma. Intraocular pressure well controlled and stable. Will continue with same regimen. Related to Primary open angle glaucoma - 4 months for cx and nfla Relat ed to Primary open angle glaucoma Primary open angle g laucoma OUgood iop today - continue same meds needs tighht control OU Related to Primary open angle glaucoma - 2 months hvf and i op will review finds with AAG Related to Primary open angle glaucoma - 1 month for iop check Related to Primary open angle glaucoma Primary open angle g laucoma OU, nfla today needs lower iop - continue latanoprost, d/c timoptic, and start generic cosopt bid OU, continue brimonodine bid OU Related to Primary open angle glaucoma - Return in [address] Mehta for IOP check. and oct on Related to Primary open angle glaucoma Primary open angle g laucoma OU Condition: established, stable. Vision: vision affected. iop a bit higher today, but ok - gave refraction, monitor Related to Primary open angle glaucoma Vitreous Floaters OU Condition: established, stable. Vision: vision not affected. - discuss monitor Related to Vitreous Floaters - Return in next with Dr. Mehta for IOP check and IOP check. Related to Primary open angle glaucoma Primary open angle g laucoma OU Condition: established, stable. Vision: vision affected. great pressure today! - discuss, rtc for refraction (px wants new rx, but dilated today, and iop check, at that time, if iop still low, have px back in 4 months for iop and OCT ON Related to Primary open angle glaucoma - Return in next with Dr. Mehta for Refraction. Related to Presbyopia Presbyopia OU Condit ion: established, stable. Vision: vision affected. - rtc for refraction Related to Presbyopia Vitreous Floaters OD Condition: established, stable. Vision: vision not affected. ptient mentioned floater hasn't had eyes diliated for over a year - inconvenient to dilate today, so Related to Vitreous Floaters - Return in next with Dr. Mehta for Dilated Exam. Related to Vitreous Floaters Primary open angle g laucoma OU Condition: established, stable. Vision: vision affected. pressure at 18, could be lower - discussed with patient, will discuss with AAG, see if better to try changing brimonidine to another med, or time to consider ALT Related to Primary open angle glaucoma - Return in [address] Mehta for IOP check. Related to Primary open angle glaucoma Primary open angle g laucoma OU Condition: established, stable. Vision: vision affected. pressure down a bit, but not much, only been taking this regimen about 10 days - discuss, rtc 3 weeks for iop check, consider changine brominidine, or refer to [facility] for ALT Related to Primary open angle glaucoma - Return in 2-[address] Mehta for IOP check with VF. Related to Primary open angle glaucoma Primary open angle g [place] OU Condition: established, stable. Vision: vision affected. did oct, showed thin rnfl, would like lower pressure - add timolol Related to Primary open angle glaucoma Primary open angle g [place] OU - COAG. IOP better today, having used Lumigan last night. Current NVO adequate. CPM. Return 5 mos for CX, any provider. Related to Primary open angle glaucoma Primary open angle g [place] OU - COAG, stable VF. IOP was up due to omitting drops. Return one month IOP check. Related to Primary open angle glaucoma Primary open angle g [place] OU - Severe COAG (pre-treatment IOP 48); probably stable. May be change in onh LE. Overdue for VF. CPM for now. Return 3 mos VF, IOP. Related to Primary open angle glaucoma Assessments Type Assessment Date No Information Patient Care Teams Name Effective Dates (start - stop) Status Members No Information
[2024-09-03] MEDS: HYDROmorphone 2 MG/ML SYR 0.5 MG IVP (16:37)
[2024-09-03] MEDS: Propofol 200 MG/20 ML VIAL 100 MG IVP (18:21)
--- NOTE | 2024-09-03 18:39 | NUR.NOTE ---
Nursing Note: Consents for procedural sedation signed 1820 Time out preformed This RN, RT and MARK, present. VS BP: 131/77, Pulse: 89 Spo2 99% NC 2L, ET: 33 Resp 18 1721 Prop 25mg given in x2 doses 1722 VS BP 142/88 Pulse 86 Spo2 98% 2L NC ET: 33 Resp 18 pateint calm, drowsy. MD attempted procedure pt not tolerating 1829 50mg prop given Patient drowsy and relaxed. MD attempted to relocate shoulder, procedure unsuccessful. VS 120/100 Pulse 88 SPO2 97% 2L ET: 30.
--- NOTE | 2024-09-03 18:41 | ED.PROG_ITS ---
Date of service: 09/03/24 Time of Service: 18:41 Medical Decision Making Signout received from prior provider, fall from standing onto right side, pending x-ray imaging and CT Evidence of anterior shoulder dislocation right side, patient moved to room placed on end-tidal CO2, as well as monitor, respiratory team and nursing team assembled, patient consented for procedural sedation with propofol for reduction of right shoulder dislocation, propofol was chosen as patient has history of hypertension as well as A-fib. Last p.o. intake was yesterday. Supplemental airway equipment at bedside. Initial attempt with 100 mg propofol unsuccessful, will reposition patient perform local massage and scapular maneuver and consider second attempt with 120 mg propofol as this is a 1 mg/kg dose; limb remains neurovascularly intact with good radial pulse good sensation median radial and ulnar nerve distribution and strength in hand wrist and elbow intact 19: 18-second sedation performed with 100 mg propofol, patient did have episode of apnea requiring BVM, and airway repositioning, with return to normal spont aneous respirations within 1 minute, good end-tidal CO2 and pulse ox currently 99%. Glenoid fossa now for reduction likely successful will obtain postreduction x-ray. Patient placed in sling 19: 39 patient was comfortably no acute distress. Postreduction x-ray showing successful reduction. Patient lives in [facility] will be given [facility] orthopedic follow-up. Quality:[facility] Health Related Social Needs: No Data to Display Procedures Procedural Sedation ASA Class: II Preparation: security system sales consultant applied, pulse oximeter, capnometry used, supplemental O2 applied, suction/airway equipment at bedside and IV secured IV Propofol dose (mg): 100 Interventions: oxygen applied, airway repositioned and assist by BVM Additional Comments: Patient did have episode of apnea requiring BVM for approximately 1 minute with return of spontaneous respirations and return to baseline mental status, good waveform capnography currently good oxygenation 99% patient responding to verbal stimuli opening eyes spontaneously Sign Out Sign Out Data: Sign Out Comment: 69-year-old male patient, anticoagulated for atrial fibrillation, sustained a mechanical fall. Head strike, awaiting CT head and C- spine. Right shoulder and proximal humerus pain, pending x-rays. Hemodynamically appropriate, neuroexam otherwise intact, in a sling. Awaiting imaging. Last updated by Caty Lynn MD at 09/03/24 16:36 Discharge Plan Disposition Patient Disposition: Home Condition: Improving Discharge Details Chief Complaint: Trauma Clinical Impression: Anterior shoulder dislocation Primary Care Provider: Mohan Aguilar ED Provider: Alex Chao Discharge Instructions Instructions: Shoulder Dislocation (DC) Additional Instructions: Please follow-up with orthopedic referral. Return to the emerged part for any worsening symptoms
[2024-09-03] MEDS: Ketorolac 15 MG/ML VIAL IVP (18:58)
[2024-09-03] MEDS: Propofol 200 MG/20 ML VIAL 120 MG IVP (19:07)
--- NOTE | 2024-09-03 19:15 | RESPIRATORY ---
ENVIRONMENTAL LEAD was present for conscious sedation procedure along with ED provider Dr. Soriano and other ED staffs. During the procedure pt. went a short episode of apnea which was recovered to spontaneous breathing after applying manual ventilation with oral airway tube and ambu bag on 15LPM of O2 flow. RT remained with patient post procedure until Xray arrived. Pt. remained on good vital signs spontaneously, etCO2 was 37, RR 22, SpO2 98 on 2l/min NC. was notified before RT left.
--- NOTE | 2024-09-03 19:29 | DI.RAD_ITS ---
Exam(s) XR SHOULDER RT COMP POST REDUC EXAM: XR SHOULDER RT COMP POST REDUC CLINICAL HISTORY: post reduction. TECHNIQUE: 2D digital imaging was performed of the right shoulder. Two images were obtained. AP an d Y views were obtained. COMPARISON: CR XR SHOULDER RT COMPLETE 2+V from 09/03/2024 FINDINGS: There has been successful reduction of the previously noted anterior right shoulder dislocation. The re is normal alignment of the glenohumeral joint and the acromioclavicular joint. Degenerative minaya es are seen at the acromioclavicular joint. No fracture is identified. IMPRESSION: Successful reduction of the right shoulder dislocation. No acute abnormality. DATA REPOSITORY: RADIATION DOSE DELIVERED:
--- NOTE | 2024-09-03 21:15 | DI.VRAD_ITS ---
PROCEDURE INFORMATION: Exam: XR Right Shoulder Exam date and time: 09/03/2024 7:25 PM Age: 69 years old Clinical indication: Other: Post reduction TECHNIQUE: Imaging protocol: Radiologic exam of the right shoulder. Views: 2 or more views. COMPARISON: CR XR SHOULDER RT COMPLETE 2+V 09/03/2024 5:02 PM FINDINGS: Bones/joints: Correlation is made with the patient's pre reduction exam. The shoulder is imaged in internal rotation. No fracture. Alignment appears anatomic. Soft tissues: Normal. IMPRESSION: Anatomic alignment post reduction. Dictated and Authenticated by: Zainab Israel MD. Ordering:ADWOA Johnson MD
== END 2024-09-03 19:59 | disposition home or self-care (01) ==
PROVIDERS: Emergency Medicine; Emergency Provider Emergency Medicine; PCP Physician Assistant
DX: S43.084A Other dislocation of right shoulder joint, initial encounter (principal); W01.0XXA Fall on same level from slipping, tripping and stumbling without subsequent striking against object, initial encounter; Z79.01 Long term (current) use of anticoagulants
CPT/HCPCS: 00123; 23655; 73030; 80053; 93005; 96374; 96375; 99284; 70450; 72125; 73060; 85025; 85610; 93010; 99283; J1171; J1885; J2704